=== PATIENT | male | born 1965 | race Caucasian/White ===

== ENCOUNTER 2022-01-24 17:56 | Emergency (ER) | payer OTHER ==
[2022-01-24] MEDS ORDERED: Boostrix 0.5 ML (Tdap) VIAL ONE (19:05)
== END 2022-01-24 19:30 | disposition home or self-care (01) ==
LOC: CSHERS 17:56
DX: S61.212A Laceration without foreign body of right middle finger without damage to nail, initial encounter (principal); I10 Essential (primary) hypertension; Z79.899 Other long term (current) drug therapy; Z23 Encounter for immunization; W26.8XXA Contact with other sharp object(s), not elsewhere classified, initial encounter
CPT/HCPCS: 90471; 90715

== ENCOUNTER 2022-01-25 14:57 | Outpatient (CLI) | payer OTHER | END 2022-01-25 14:58 | disposition home or self-care (01) | LOC: CSHULT 14:57 | PROVIDERS: ATTEND Urology | DX: N13.5 Crossing vessel and stricture of ureter without hydronephrosis (principal); Z98.890 Other specified postprocedural states | CPT/HCPCS: 76770 ==